=== PATIENT | female | born 1975 | race Caucasian/White ===

== ENCOUNTER 2017-05-24 08:11 | Inpatient (IN) | payer OTHER ==
[~2017-05-24] VITALS: Ht 167.6 cm; Wt 79.4 kg
[~2017-05-24 08:11] MED LIST: CAR120CD PO; DIL2 PO; IMI100 PO; ONDA4TAB12 PO; OXY5 PO; PROT40T PO; [UNRECOGNIZED DRUG - OTHER] TD; actigall PO
[2017-05-24] MEDS ORDERED: fentaNYL-PF 50 mCg/mL 2 mL Inj ONE (08:36)
[2017-05-24] MEDS ORDERED: Lactated Ringer's 1,000 ML IV PRN (09:07)
[2017-05-24] MEDS ORDERED: Oxytocin 30 Units/500 mL LR 30 UNITS in IV Premix 1 EACH IV PRN (09:10)
[2017-05-24] MEDS ORDERED: Witch Hazel-Glycerin Pads TOPICAL PRN (09:10)
[2017-05-24] MEDS ORDERED: TdaP Vaccine 0.5 mL Inj IM ONE (09:10)
[2017-05-24] MEDS ORDERED: Benzocaine (Dermoplast) 20% 60 Gm Spray TOPICAL PRN (09:10)
[2017-05-24] MEDS ORDERED: Oxytocin 10 Unit/mL Inj IM PRN ×2 (09:10)
[2017-05-24] MEDS ORDERED: Hemorrhage Kit, Post Partum XX ONE ×2 (09:10)
[2017-05-24] MEDS ORDERED: Methylergonovine 0.2 mg/mL Inj IM PRN ×2 (09:10)
[2017-05-24] MEDS ORDERED: Carboprost 250 mCg/mL Inj IM PRN ×2 (09:10)
[2017-05-24] MEDS ORDERED: Ondansetron 2 mg/mL 2 mL Inj IVPUSH PRN (09:10)
[2017-05-24] MEDS ORDERED: Sodium Chloride LOK Flush 10 mL Syringe IVFLUSH PRN (09:10)
[2017-05-24] MEDS ORDERED: LANOlin HPA 7 Gm Ointment TOPICAL PRN (09:10)
[2017-05-24] MEDS ORDERED: oxyCODONE-Acetamin 5-325 mg Tablet PO ONE (09:29)
--- NOTE | 2017-05-24 09:33 | PCM.HPOB ---
Subjective Date of Service: May 24, 2017 Referring Provider: Admitting Physician: Lm Perez MD Primary Care Physician: Nopcp Attending Physician: Lm Perez MD Chief Complaint Came in by EMS delivered at home. History of Present History of Present Illness 41 y/o -0-2-1 who was brought in by EMS after delivering at home with placenta still in place. The patient had no care and has a history of heroin use which she reports she has not used heroin for the past 10 months. States over the past two to three weeks she has smoked methamphetamines. She reports her LMP as the end of the first week in September which would place her around 34 weeks gestation. She attributes lack of care to lack of transportation and fear that CPS would take away her infant. Past Medical History Obstetrical History: 1. at term without complication 1995 2. 2001 3. 2011 Gynecologic History: History of abnormal pap smear and chlamydia at age 19. Reports pap smears after were normal. Medical History: 1. History of Heroin and methamphetamine use. Surgical History: 1. Back surgery 2. Cholecystectomy Social History: 1. Heroin use 2. Methamphetamine use 3. Smoker Hx Tobacco Use: Yes Smoking Status: Current Every Day Smoker Hx Alcohol Use: No Hx Substance Use: Yes Past Family History Living Arrangement: with Family Genetic Screening/Counseling Baby father-had child w defect: No Allergy Coded Allergies: Codeine (Verified Adverse Reaction, Intermediate, Restlessness, 04/13/10) Exam Vital Signs 166/110 pulse 97, Resp 20, Temp 36.8 Constitutional: Well-developed Lungs: Clear to Auscultation Heart: Exam Unremarkable Skin: Other (Scarring of both left and right arms from IV drug use and chemical moraes) Neurological/Psychiatric: Alert, Oriented X3, Moderate Distress Neuro: Grossly Neurologically Intact Additional Information Placenta still in place with minimal bleeding. Labs/Diagnostics Labs No labs drawn this Lab/Diagnostic Information Laboratory Tests Test 05/24/17 10:40 05/24/17 10:57 05/24/17 11:11 Sodium Level 133mEq/L (134-144) Potassium Level 5.2mEq/L (3.5-5.2) Chloride Level 96mEq/L (97-108) Carbon Dioxide Level 18mmol/L (18-29) Blood Urea Nitrogen 8mg/dL (6-24) Creatinine 0.65mg/dL (0.57-1.00) Estimat Glomerular Filtration Rate 145mL/min (>59) Glucose Level 156mg/dL (60-99) Calcium Level 9.4mg/dL (8.5-10.1) Total Bilirubin 0.3mg/dL (0.0-1.2) Aspartate Amino Transf (AST/SGOT) 23U/L (0-50) Alanine Aminotransferase (ALT/SGPT) 8U/L (0-32) Alkaline Phosphatase 216U/L (25-150) Total Protein 6.8g/dL (6.4-8.4) Albumin 3.3g/dL (3.4-5.0) Urine Opiates Screen Negative Urine Methadone Screen Negative Urine Barbiturates Screen Negative Urine Amphetamines Screen Positive Urine Benzodiazepines Screen Negative Urine Cocaine Metabolite Screen Negative Urine Cannabinoids Screen Negative White Blood Count 18.9th/mm3 (3.8-10.1) Red Blood Count 3.80mil/mm3 (3.90-5.20) Hemoglobin 11.0g/dL (12.0-15.6) Hematocrit 34.1% (35.0-46.0) Mean Corpuscular Volume 89.7fL (81-100) Mean Corpuscular Hemoglobin 28.9pg (27.0-35.0) Mean Corpuscular Hemoglobin Concent 32.3% (32.0-37.0) Red Cell Distribution Width 13.7% (12.3-15.4) Platelet Count 201bil/L (150-400) Maternal Blood Type: Unknown Group B Strep Results: Not done OB Intrapartum Assessment/Plan Problems: (1) Labor, precipitous, delivered Plan: Admit patient and delivery placenta Will send lab panel and obtain S Social work consult. Status: Acute ICD Code: O62.3 Lm Perez MD May 24, 2017 09:33
[2017-05-24 11:20] LABS: Mean Corpuscular Hemoglobin 28.9 pg (27.0-35.0); Mean Corpuscular Volume 89.7 fL (81-100)
[2017-05-24] MEDS: Ascorbic Acid 500 mg Tablet PO SCH (17:47)
--- NOTE | 2017-05-24 20:42 | OP ---
[address] [address] OPERATIVE REPORT PATIENT: MABEL ROBINS : 1975 MR#: [id number] ADMIT: 05/24/2017 JOB ID: [id number] DATE OF SURGERY: 05/24/2017 SURGEON: Lm Perez MD PREOPERATIVE DIAGNOSIS(ES): POSTOPERATIVE DIAGNOSIS(ES): DELIVERY SUMMARY: The patient is a 41-year-old, 4, para 1-0-2-1 with an unknown gestational age and history of heroin and methamphetamine use who was brought in by emergency medical services after delivering an infant at home. The placenta was still in place. The infant was delivered at 0745 hours this morning. Upon arrival to the [facility], she was placed in a delivery room and transferred to the patient bed. At that time, an exam was performed and the placenta was still in place. The umbilical cord was very thin and placenta was in the vaginal vault. The patient was in [id number] pain and somewhat uncooperative. She complained of pain with any touch of her abdomen or perineum. The patient was given 100 mcg of IV fentanyl to help with pain. With some coaching, the placenta was delivered intact with a three-vessel cord at 0830. On inspection of the vagina and perineum, there was a small second-degree perineal laceration that was repaired in the standard fashion with 0-Vicryl suture. 1% lidocaine was used locally for anesthesia. The infant's weight was 2949 g with no Apgars available, a female . DIRECTOR AGENCY & STRATEGIC PARTNERSHIPS: Lm Perez MD. ANESTHESIA: Local lidocaine. ESTIMATED BLOOD LOSS: 250 mL.
[2017-05-25 03:08] LABS: Hepatitis A Antibody IgM Negative (Negative); Hepatitis B Core Antibody IgM Negative (Negative); Rubella IgG Antibody 4.88 index (Immune >0.99)
[2017-05-25] MEDS: Lactated Ringer's 1,000 ML IV SCH ×2 (09:07→17:07)
[2017-05-25] MEDS: Ascorbic Acid 500 mg Tablet PO SCH ×2 (09:55→17:21)
--- NOTE | 2017-05-25 10:19 | NUR ---
Social Work Note D/A/P: FACTORY ENGINEER received a referral for Pt due to concerns about polysubstance use with a positive drug screen, no care and poor living conditions. FACTORY ENGINEER spoke with lamp shade sewer Dennise who indicated that Pt would be ready for discharge today. FACTORY ENGINEER indicated that she would see this Pt around 11:30 this morning. Mayelin Luo, PATRICK, AAC
[2017-05-25 12:49] LABS: Mean Corpuscular Hemoglobin 28.9 pg (27.0-35.0); Mean Corpuscular Volume 90.6 fL (81-100)
--- NOTE | 2017-05-25 13:24 | PCM.PNOBPP ---
Subjective Date of Service May 25, 2017 Post : Spontaneous Vaginal Delivery Group B Strep Results: Not done Blood Type: Unknown Labs Laboratory Tests 05/25/17 12:35: White Blood Count 10.7, Red Blood Count 3.50, Hemoglobin 10.1, Hematocrit 31.7, Mean Corpuscular Volume 90.6, Mean Corpuscular Hemoglobin 28.9, Mean Corpuscular Hemoglobin Concent 31.9, Red Cell Distribution Width 13.7, Platelet Count 208 Exam Vital Signs Vital Signs BP 148/93, 146/87, HR 85, RR 16, T 36.4 Exam Abdomen: Fundus firm Extremities: Edema 1+ Lungs: Clear to Auscultation Heart: Regular Rate/Rhythm, Normal S1, Normal S2 General: Alert, Oriented X3 OB Post Assessment/Plan Assessment 41 y/o -0-2-1 PPD#1 Home delivery 05/24/17, 745 am, at an unknown gestational age due to lack of care during this Elevated BP , preeclampsia labs WNL except slight rising in creatinine still WNL , Protein creatinine ratio pending. asymptomatic. Denies h/o of CHTN Heroin and amphetamine abuse No care Plan: Continue to monitor for BP. Anticipate discharge tomorrow. Dann Martinez MD May 25, 2017 13:24
--- NOTE | 2017-05-25 13:32 | NUR ---
Social Work Note D/A: CHIEF NURSING EXECUTIVE met with Pt at bedside to complete initial assessment. Pt is a 41 year old female who gave to BG on 05/24/2017 in the ambulance en route to the hospital. Pt reported that she currently lives in [place] with FOB and indicated her intent to return to this home upon discharge. EMS reported concerns regarding Pt's home when Pt was admitted indicating that the home was in disarray and had no running water. Pt reported that her home has hot and cold running water and electricity with heat. Pt was positive for Meth at the time of arrival to the hospital. Pt explained that she began using meth about three weeks prior to delivery. Pt reported that she was hanging out with some friends and she decided to use meth. Pt indicated that she last used meth on 05/22/2017. Pt provided no other explanation for her use and denied all other use during . Pt endorsed a history of heroin use and explained that she has been clean from heroin for the last 10 months. Pt did not receive care and explained that this was due to not having a vehicle. Pt stated, "We didn't have a car and I kept planning to find a doctor but the the time just got away from me." Pt reported that she has everything that she will need to care for BG at home including a crib and a car seat. Pt reported that she has one previous child who is now 21 years old. Pt indicated no previous CPS involvement. FOB is Shayan. Pt reported that FOB is planning to be involved and supportive in assisting with care for BG. Pt reported supportive family and friends in the area who are available to assist in caring for BG if needed. Pt denied any history of CD or mental illness. Pt reported no legal history. Pt reported that she is not enrolled in [place] but explained that she intends to do so once she is discharged. Pt reported that she is receiving food stamps. Pt reported on additional needs prior to discharge. P: Pt received no care and admits to meth use throughout the last three weeks of . Pt is not yet enrolled in [place] but expressed that she intends to do so. [facility] has already been involved and has scheduled a FTDM for 05/26/2017. BG is currently on a medical hold pending further instruction from CPS. CHIEF NURSING EXECUTIVE called CPS intake and was informed that the air intelligence specialist for BG is Paula Moon at [phone]. CHIEF NURSING EXECUTIVE called Paula to discuss this case and left a message requesting a call back. staff development nurse reported that Pt and FOB have been appropriate, affectionate and involved in caring for BG while in the hospital. staff development nurse reported substantial concerns regarding Pt's living condition and substance use. CHIEF NURSING EXECUTIVE to continue to work with CPS regarding this case. Pt to be discharged once medically cleared by [facility] . PATRICK Ramirez, AZAM Addendum: 05/25/17 at 1759 by MABEL TINAJERO SS Correction: PATRICK noted that Pt denied a history of CD. This is incorrect. Pt denied a history of DV. PATRICK Ramirez, AAC
[2017-05-26] MEDS: Lactated Ringer's 1,000 ML IV SCH (01:07)
[2017-05-26] MEDS ORDERED: ASCO-294 PO (07:07)
[2017-05-26] MEDS ORDERED: IBUP800T28 PO (07:07)
[2017-05-26] MEDS ORDERED: DOCU-41 PO (07:07)
[2017-05-26] MEDS ORDERED: FERR-83 PO (07:07)
[2017-05-26] MEDS ORDERED: ONDA4TAB9 PO (07:37)
[2017-05-26] MEDS ORDERED: LABE100T4 PO (07:37)
[2017-05-26] MEDS ORDERED: Albuterol 2.5 mg/3 mL Inhalation Solution NEB ONE (07:50)
[2017-05-26] MEDS: Ascorbic Acid 500 mg Tablet PO SCH (08:09)
[2017-05-26 08:45] VITALS: PULSE 76; RESP 18; O2SAT 96
[2017-05-26] MEDS ORDERED: ALBU8.5H2 INHALATION (08:53)
--- NOTE | 2017-05-26 09:20 | PCM.DIOB ---
Obstetrical Disch Instruction Dates of Hospitalization Date of Hospital Admission May 24, 2017 at 08:11 Providers Admitting Physician: Lm Perez MD Primary Care Physician: Nopmoira Attending Physician: Lm Perez MD Discharge Diagnosis Discharge Diagnosis You delivered a baby girl. Problems: (1) Labor, precipitous, delivered Permanent Comment: 41 y/o -0-2-1 at an unknown gestational age due to lack of care during this who delivered at home and was brought in by EMS. Last Edited By: Lm Perez MD on May 24, 2017 11:45 Status: Acute ICD Code: O62.3 Diet Discharge Diet: No restrictions Activity Discharge Activity-General: Pelvic Rest for 6 weeks, Balance rest and activity , No lifting >15 pounds for 2 weeks, No lifting >10 pounds for 4-6 weeks Dressing and Incisional Care Hygiene: May shower, Wash incision with soap & water, DO NOT soak incision under water, NO bathtub, hot tub or whirlpool, Perineal care Additional Instructions Discharge Instructions Continue your vitamin. Please take the iron and vitamin c together for your anemia. Iron can give you constipation so you have also been given a prescription for docusate to keep you regular. Start taking labetalol 100 mg every 12 hours for your blood pressure. You have also been given a prescription for an inhaler for wheezing. If you notice that the inhaler does not help your wheezing or coughing, please seek medical attention. If you notice that you start to cough up sputum or you have trouble breathing, then seek medical attention. Be sure to follow up in 1 week and 6 weeks at [facility]. The 1 week visit will be to check your blood pressure. Pelvic rest for 6 weeks (nothing per vagina including intercourse, tampons) If you have a fever greater than 100.4 or notice that you start to cough up sputum or you have trouble breathing, please call [facility] or go to the hospital. There is always someone shipping lead person to talk to at [facility]. If you have an increase in bleeding, call [facility]. If you have a lot of bleeding suddenly, especially if you have symptoms of dizziness & weakness with it, get emergency help. If you start experiencing extreme depression, especially if you feel that you are a danger to yourself or your family, seek emergency help. You have been through a lot -- BE SURE TO TAKE CARE OF YOURSELF. You have been sent home with the following prescriptions: - Colace 100 mg twice a day as needed for constipation. - Ferrous sulfate 325 mg every day. - Vitamin C 500 mg every day. Take with iron. - Ibuprofen 800mg take 1 tab every 8 hours as needed for pain. Take with a meal. - Ondansetron 4 mg dissolve 1 tab underneath your tongue every 4 hours as needed for nausea or vomiting. - Labetalol 100 mg take 1 tab every 12 hours every day. - Albuterol inhaler intake 2 puffs every 4-6 hours as needed for wheezing or cough. Follow up in 1 week to check your blood pressure and in 6 weeks at [facility]. Follow Up Plan Follow-up Provider (F9): Lm Perez MD Follow-up appointment: Weeks (1 and 6) Call your provider for: Fever or Chills, Shortness of breath, Heavy vaginal bleeding, Heavy bleeding, Epigastric pain, Excessive constipation, Vaginal discomfort, Red painful breasts, Other (painful swelling in your legs, vision changes, headache, dizziness, or upper abdominal pain) Seema Rueda DO May 26, 2017 07:01 changes, headache, dizziness, or upper abdominal pain) Seema Rueda DO May 26, 2017 07:01
--- NOTE | 2017-05-26 10:27 | NUR ---
Social Work Note:FTDM D/A/P: ROLLER SHOP UTILITY WORKER spoke with CPS Worker Paula Moon to provide an update during Pt's FTDM today at 10:20. ROLLER SHOP UTILITY WORKER consulted with RN Dennise Hernandez regarding possible withdrawal symptoms per CPS request and relayed the information verbally to Miss Moon who then indicated that she would update ROLLER SHOP UTILITY WORKER regarding the outcome of the FTDM. PATRICK Ramirez, AAC
[2017-05-26 10:34] VITALS: BP 128/65; PULSE 83; RESP 18
[2017-05-26] MEDS ORDERED: [UNRECOGNIZED DRUG - OTHER] PO SCH (12:00)
--- NOTE | 2017-05-26 15:29 | NUR ---
Social Work Note D/A/P: BEHAVIORAL HEALTH CLINICIAN received a voicemail from CPS worker Paula Moon indicating that the result of the FTDM was that BG would need to be removed from the home. Paula explained that she would be completing the court paperwork today and would forward everything to BEHAVIORAL HEALTH CLINICIAN as soon as possible. Paula also reported that FOB, Shayan, was openly hostile and threatening throughout the meeting and advised that [facility] staff be made aware of this behavior. BEHAVIORAL HEALTH CLINICIAN relayed this information to Pt's RN Paty Becerra. Mayelin Luo, PATRICK, AAC
--- NOTE | 2017-05-26 17:43 | PCM.DC.OB ---
Obstetrical Discharge Summary Date of Service May 26, 2017 Date of hospital admission May 24, 2017 at 08:11 Date of Discharge: May 26, 2017 Providers Admitting Physician: Lm Perez MD Primary Care Physician: Dawson Attending Physician: Lm Perez MD Diagnosis at Time of Discharge 41 y/o -0-2-1 now P2 status post normal spontaneous vaginal delivery at home Gestational hypertension, possible chronic hypertension Heroin and amphetamine abuse No care Problems: (1) Labor, precipitous, delivered Comment: 41 y/o -0-2-1 at an unknown gestational age due to lack of care during this who delivered at home and was brought in by EMS. Last Edited By: Lm Perez MD on May 24, 2017 11:45 Status: Acute ICD Code: O62.3 Invasive procedures Placental delivery Date of Procedure: May 24, 2017 Brief History and Physical: From the history and physical performed by Dr. Lm Perez on 05/24/17: 41 y/o -0-2-1 who was brought in by EMS after delivering at home with placenta still in place. The patient had no care and has a history of heroin use which she reports she has not used heroin for the past 10 months. States over the past two to three weeks she has smoked methamphetamines. She reports her LMP as the end of the first week in September which would place her around 34 weeks gestation. She attributes lack of care to lack of transportation and fear that CPS would take away her . Hospital Course: 41 y/o -0-2-1 now P2 status post normal spontaneous vaginal delivery at home at unknown weeks gestation - Female 's weight was 2949 g with no Apgars available - Placental delivered on 05/24/17 in the hospital. Pt had a second-degree perineal laceration, which was repaired. - labs were drawn during admission to the hospital. Blood type O positive, RPR nonreactive, hepatitis A, B, and C negative, HIV nonreactive, and rubella immune. Tdap vaccine given during admission. - On day of discharge, she continue to have nausea but no vomiting. Her appetite was good. She did not have headache, blurred vision, or upper abdominal pain. She is ambulating and passing flatus. She had moderate lochia. Her blood pressure was stable after it was rechecked the morning of discharge. She was afebrile. On exam, her lungs had mild wheezing bilateral that improved after an albuterol nebulizer treatment. Her heart was a regular rate and rhythm with no murmurs, rubs, or gallops. Her uterus was firm and non-tender. She had mild bilateral non-pitting pedal edema. - She was discharged with an albuterol inhaler and advised to watch for symptoms of pneumonia. Gestational hypertension, possible chronic hypertension - Elevated blood pressures during hospital stay and no blood pressures available during period due to lack of care - Protein/creatinine ratio 0.14 - On discharge, pt given labetalol 100 mg BID - Continue to monitor at follow up appointments Heroin and amphetamine abuse - Reported heroin cessation for the past 10 months but methamphetamine use for the past 2-3 weeks prior to admission - Positive urine amphetamines on admission - tool maintenance worker consulted and CPS is involved. No care Albuterol HFA (Proair HFA) 8.5 Gm Hfa.aer.ad 2 PUFFS INHALATION Q4H PRN PRN For Wheezing Prescribed by: COBY RUEDA DO Ascorbate Calcium (Vitamin C) 500 Mg Tablet 500 MG PO DAILY Prescribed by: COBY RUEDA DO Docusate Sodium (Colace) 100 Mg Capsule 100 MG PO BID PRN PRN For Constipation Prescribed by: COBY RUEDA DO Ferrous Sulfate (Ferrous Sulfate) 325 Mg Tablet 325 MG PO DAILY Prescribed by: COBY RUEDA DO Ibuprofen (Ibuprofen) 800 Mg Tablet 800 MG PO TID PRN PRN For Pain Prescribed by: COBY RUEDA DO Labetalol (Labetalol) 100 Mg Tablet 100 MG PO BID Prescribed by: COBY RUEDA DO Ondansetron ODT (Zofran ODT) 4 Mg Tablet 4 MG PO Q4H PRN PRN For Nausea Prescribed by: COBY RUEDA DO Pantoprazole-Expunged Drug, Do Not Renew! (Protonix-Expunged Drug, Do Not Renew! ) 40 Mg Tablet.dr 40 MG PO DAILY (Reported) Discontinued Medications ([niCOTINEPATCH]) 21 TD DAILY (Reported) ([actigall]) 300 MG PO BID (Reported) Diltiazem-Expunged Drug, Do Not Renew! (Diltiazem CD-Expunged Drug, Do Not Renew !) 120 Mg Capsule 120 MG PO DAILY (Reported) Hydromorphone-Expunged Drug, Do Not Renew! (Hydromorphone-Expunged Drug, Do Not Renew!) 2 Mg Tablet 2 MG PO Q8 PRN PRN (Reported) Ondansetron (Ondansetron Odt) 4 Mg/Udtablet Tab.rapdis 4 MG PO QID PRN PRN ( Reported) Sumatriptan-Expunged Drug, Do Not Renew! (Imitrex-Expunged Drug, Do Not Renew!) 100 Mg Tab 100 MG PO DAILY PRN PRN (Reported) oxyCODONE-Expunged, Do Not Renew! (oxyCODONE-Expunged, Do Not Renew!) 5 Mg Tablet 5 MG PO Q6 PRN PRN (Reported) Attending Statement: The patient was seen and examined together with Dr. Rueda and I agree with the history, exam and plan as outlined in the note above. She is overall doing well today. She had issues with elevated blood pressures and was started on labetalol 200 BID with resultant drop in her blood pressure to 94/44- labetalol dosing decreased to 100mg daily with trang blood pressures documented following administration. She is also wheezy on examination but denies any shortness of breath and is afebrile- rescue inhaler given today. Social work is following and the plan is for direct admission to inpatient treatment facility. Plan to d/c to treatment with labetalol 100 BID recommend follow up in one week for BP check. copies to: Lm Perez MD, Marissa L DO May 26, 2017 10:57 Beti Fajardo MD May 26, 2017 21:54
--- NOTE | 2017-05-27 14:51 | PATH ---
SURGICAL PATHOLOGY Attending Physician:Lm Perez, CASE STATUS: Signed Out PATIENT NAME: MABEL ROBINS PID: [id number] : 1975 DATE COLLECTED:05/24/2017 21:54 SPECIMEN: Placenta CLINICAL HISTORY: 1). PLACENTA FINAL DIAGNOSIS: Placenta and Membranes: 1. Placenta: 585 grams (gestational age not provided). Focal acute phlebitis involving the chorionic plate. Changes consistent with abruption. 2. Umbilical cord: Absent. Changes of acute phlebitis at the cord attachment site (7.2 cm from the placental edge). 3. membranes: Diffuse acute chorionitis and deciduitis. Membranes ruptured 3.8 cm from the free placental edge. ICD10: O41.0 GROSS DESCRIPTION: The specimen is received in formalin, labeled with the patient's name and consists of a placenta and includes placental disc (585 g, 18.5 x 14.8 x 3.1 cm) and membranes. The umbilical cord is absent. The membranes are ruptured 3.8 cm from the free edge of the placenta and are semi-translucent. The umbilical cord attachment site is 7.2 cm from the edge of the placenta. The surface is smooth and shiny with no evidence of meconium identified. The maternal surface is dark maroon with normal cotyledon formation. An apparent abruption site is identified along the periphery. The placental disc is spongy with no hematomas, infarcts, nodules, masses, or lesions identified. Section code: (A) edge of placenta with membranes; (B) umbilical cord attachment site; (C-D, E-H) placenta, 5 full thickness sections. 05/25/17 ICD-9 CODES: CPT CODES: 1: 69656 Electronically Signed Out By Ilan Temple MD [facility] Ilan Temple MD [facility], [address], [place] [address] Technical component performed at [facility], [address], [place], [address]
== END 2017-05-26 15:32 | disposition home or self-care (01) | DRG 767 ==
LOC: FBC 08:11
PROVIDERS: ADMIT Obstetrics & Gynecology; ATTEND Obstetrics & Gynecology
PROC: 10D17ZZ Extraction of Products of Conception, Retained, Via Natural or Artificial Opening (ICD-10-PCS; principal; 2017-05-24)
PROC: 0KQM0ZZ Repair Perineum Muscle, Open Approach (ICD-10-PCS; 2017-05-24)
DX: O73.1 Retained portions of placenta and membranes, without hemorrhage (principal); Z37.0 Single live birth; O13.4 Gestational [pregnancy-induced] hypertension without significant proteinuria, complicating childbirth; O99.324 Drug use complicating childbirth; O70.1 Second degree perineal laceration during delivery; O99.334 Smoking (tobacco) complicating childbirth; F17.200 Nicotine dependence, unspecified, uncomplicated; F11.10 Opioid abuse, uncomplicated; F15.10 Other stimulant abuse, uncomplicated; Z3A.34 34 weeks gestation of pregnancy